=== PATIENT | male | born 1960 | race Caucasian/White ===

== ENCOUNTER 2016-11-21 07:36 | Day surgery (SDC) | payer BC ==
[2016-11-21] MEDS ORDERED: Lactated Ringers 1,000 ML IV SCH (08:30)
[2016-11-21] MEDS ORDERED: Sodium Chloride 0.9% 5 ML Syringe FLUSH PRN (08:30)
[2016-11-21] MEDS ORDERED: Midazolam 1 MG/ML 2 ML SDV ONE (08:31)
[2016-11-21] MEDS ORDERED: fentaNYL 100 MCG/2 ML SDV ONE (08:31)
[2016-11-21] MEDS ORDERED: Propofol 200 MG/20 ML SDV ONE ×2 (08:31→09:35)
[2016-11-21] MEDS ORDERED: EPINEPHrine 1:10,000 1 MG/10 ML Syringe ONE ×2 (09:07→10:31)
[2016-11-21] MEDS ORDERED: fentaNYL 100 MCG/2 ML SDV IV ONE (10:18)
[2016-11-21] MEDS ORDERED: Midazolam 1 MG/ML 2 ML SDV IV ONE (10:18)
[2016-11-21] MEDS ORDERED: Propofol 200 MG/20 ML SDV IV ONE (10:18)
--- NOTE | 2016-11-21 11:11 | PCM.OPNOTE ---
- General Post-Op/Procedure Note Date of Surgery/Procedure: 11/21/16 Operative Procedure(s): Colonoscopy with polypectomy x2 Pre Op Diagnosis: Rectal bleeding. Screening colonoscopy. Post-Op Diagnosis: 2 polyps identified one at 25 and one at 45 cm from the anal margin. Otherwise negative colonoscopy. Polypectomy performed by injection of one is to 10,000 epinephrine, loop electrocautery. Anesthesia Technique: MAC Primary Surgeon: Mercedez Prater Complications: None Condition: Good Free Text/Narrative:: INFORMED CONSENT: Patient is here today for elective colonoscopy. All aspects of this procedure have been discussed with the patient. All possible complications also, including possibility of perforation, infection, pain, bleeding and unknown complications. In the event of perforation patient may need to have abdominal exploration, colon resection, colostomy and even was discussed. Anesthetic complications were handled by anesthesia department. The patient understands fully well. Patient did not have any further questions for me at the end of my interview. The patient wishes for me to proceed. PREOPERATIVE DIAGNOSIS/INDICATIONS: [rectal bleeding and screening.] POSTOPERATIVE DIAGNOSIS: [2 polyps identified at 25 images and 40 cm from anal margin.] INSTRUMENT USED: Olympus videocolonoscope. ASA CLASSIFICATION: [2] ANESTHESIA: Continuous EKG, oximetry and intermittent blood pressure and respiratory monitoring were performed throughout the procedure. IV Versed and Fentanyl were administered. PROCEDURE PERFORMED: Colonoscopy POSITIONS OF PATIENT: Left lateral. RECTUM: Normal. SIGMOID COLON: a 25 cm a pedunculated polyp was identified. cc of one is to 10, 000 epinephrine was injected followed by loop and electrocautery and retrieval of the polyp.. DESCENDING COLON: small pedunculated polyp was identified. this was removed after injection with one is to 10,000 epinephrine, loop and the electrocautery and retrieval. SPLENIC FLEXURE: Normal. TRANSVERSE COLON: Normal. HEPATIC FLEXURE: Normal. ASCENDING COLON: Normal. CECUM: Normal. ILEOCECAL VALVE: Normal. BIOPSY: None. TOLERANCE: Excellent. COMPLICATIONS: None. Final diagnosis: 2 polyps identified at 25 cm and 40 cms from anal margin, otherwise negative colonoscopy.
[2016-11-21 13:29] VITALS: BP 131/94
== END 2016-11-21 12:20 | disposition home or self-care (01) ==
LOC: KA.SDS 07:36
PROVIDERS: ATTEND Family Medicine
DX: D12.4 Benign neoplasm of descending colon (principal); D12.5 Benign neoplasm of sigmoid colon
CPT/HCPCS: 45390; J0171; J2250; J2704; J3010; J7120

== ENCOUNTER 2017-05-27 10:28 | Emergency (ER) | payer BC ==
[2017-05-27 10:38] VITALS: BP 132/94
[2017-05-27] MEDS ORDERED: Sodium Chloride 0.9% 1,000 ML ONE (10:47)
[2017-05-27] MEDS ORDERED: Ondansetron 4 MG/2 ML SDV ONE (10:47)
[2017-05-27] MEDS ORDERED: Ondansetron 4 MG/2 ML SDV IVPUSH ONE (11:02)
[2017-05-27] MEDS ORDERED: Sodium Chloride 0.9% 1,000 ML IV ONE (11:02)
--- NOTE | 2017-05-27 11:04 | EDM.PDOC ---
ED HPI GENERAL MEDICAL PROBLEM - General Chief Complaint: Gastrointestinal Problem Stated Complaint: vomiting/diarrhea Time Seen by Provider: 05/27/17 11:00 Source of Information: Reports: Patient History Limitations: Reports: No Limitations - History of Present Illness INITIAL COMMENTS - FREE TEXT/NARRATIVE: 56 YO WM presents to ER with 2 day history of nausea, body aches, chills and diarrhea. Pt reports he began vomiting 2am today with 3-4 episodes of loose stool. Pt deies abdominal pain. Pt has been unable to tolerate PO fluid challenge at home. Pt also reports mild headache. Onset Date: 05/26/17 Duration: Day(s): (2) Location: Reports: Generalized Severity: Mild Improves with: Reports: None Worsens with: Reports: Eating Associated Symptoms: Reports: Fever/Chills, Loss of Appetite, Malaise, Nausea/ Vomiting. Denies: Chest Pain, Cough, cough w sputum, Rash, Shortness of Breath , Syncope Generalized Pain Score (Numeric/FACES): 7 - Related Data Allergies Allergy/AdvReac Type Severity Reaction Status Date / Time morphine Allergy Other Verified 05/27/17 10:38 Home Meds: Home Meds Allopurinol [Zyloprim] 100 mg PO DAILY 11/15/16 [History] Docusate Sodium [Colace] 100 mg PO DAILY 11/15/16 [History] Hydrocortisone [Procto-Med Hc] 30 gm TP QID 11/15/16 [History] Pravastatin Sodium [Pravastatin (Pravachol)] 80 mg PO DAILY 11/15/16 [History] Cyclobenzaprine HCl [Cyclobenzaprine HCl] 10 mg PO TID PRN 05/27/17 [History] Hydrocodone/Acetaminophen [Hydrocodon-Acetaminophn 10-325] 1 tab PO Q6H PRN [History] Ondansetron [Zofran ODT] 4 mg PO Q6H PRN #10 tab.dis 05/27/17 [Rx] Past Medical History HEENT History: Reports: Impaired Vision Cardiovascular History: Reports: High Cholesterol Musculoskeletal History: Reports: Gout - Past Surgical History Male Surgical History: Reports: Nephrectomy, Other (See Below) Other Male Surgeries/Procedures: right nephrectomy; 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 Social & Family History - Family History Cardiac: Reports: High Cholesterol - Tobacco Use Smoking Status *Q: Never Smoker - Caffeine Use Caffeine Use: Reports: Coffee, Soda - Recreational Drug Use Recreational Drug Use: Yes Drug Use in Last 12 Months: Yes Recreational Drug Type: Reports: Marijuana/Hashish Recreational Drug Use Frequency: Daily ED ROS GENERAL - Review of Systems Review Of Systems: See Below Constitutional: Reports: No Symptoms HEENT: Reports: No Symptoms Respiratory: Reports: No Symptoms Cardiovascular: Reports: No Symptoms Endocrine: Reports: No Symptoms GI/Abdominal: Reports: Diarrhea, Nausea, Vomiting. Denies: Abdominal Pain : Reports: No Symptoms Musculoskeletal: Reports: No Symptoms Skin: Reports: No Symptoms Neurological: Reports: No Symptoms Psychiatric: Reports: No Symptoms Hematologic/Lymphatic: Reports: No Symptoms Immunologic: Reports: No Symptoms ED EXAM, GI/ABD - Physical Exam Exam: See Below Exam Limited By: No Limitations General Appearance: Alert, WD/WN, No Apparent Distress Head: Atraumatic, Normocephalic Neck: Normal Inspection, Supple, Non-Tender, Full Range of Motion Respiratory/Chest: No Respiratory Distress, Lungs Clear, Normal Breath Sounds, No Accessory Muscle Use, Chest Non-Tender Cardiovascular: Normal Peripheral Pulses, Regular Rate, Rhythm, No Edema, No Gallop, No JVD, No Murmur, No Rub GI/Abdominal Exam: Normal Bowel Sounds, Soft, Non-Tender, No Organomegaly, No Distention, No Abnormal Bruit, No Mass, Pelvis Stable Back Exam: Normal Inspection, Full Range of Motion Extremities: Normal Inspection, Normal Range of Motion, Non-Tender, Normal Capillary Refill, No Pedal Edema Neurological: Alert, Oriented, CN II-XII Intact, Normal Cognition, Normal Gait, Normal Reflexes, No Motor/Sensory Deficits Psychiatric: Normal Affect, Normal Mood Skin Exam: Warm, Dry, Intact, Normal Color, No Rash Lymphatic: No Adenopathy Course - Vital Signs Last Recorded V/S: Last Vital Signs Temp 36.7 C 05/27/17 10:34 Pulse 75 05/27/17 10:34 Resp 16 05/27/17 10:34 BP 132/94 H 05/27/17 10:34 Pulse Ox 98 05/27/17 10:34 - Orders/Labs/Meds Labs: Laboratory Tests 05/27/17 05/27/17 Range/Units 10:45 10:45 WBC 10.7 H (5.0-10.0) 10^3/uL RBC 5.54 (4.50-6.00) 10^6/uL Hgb 17.1 H (13.0-17.0) g/dL Hct 52.2 H (40.0-52.0) % MCV 94.3 H (82.0-92.0) fL MCH 30.8 (27.0-31.0) pg MCHC 32.7 (32.0-36.0) g/dL RDW 12.1 (11.5-14.5) % Plt Count 243 (150-300) 10^3/uL MPV 8.2 (7.4-10.4) fL Neut % (Auto) 77.5 H (50.0-70.0) % Lymph % (Auto) 15.2 L (20.0-40.0) % Henderson % (Auto) 5.8 (2.0-8.0) % Eos % (Auto) 0.5 L (1.0-3.0) % Baso % (Auto) 1.0 (0.0-1.0) % Neut # (Auto) 8.3 H (2.5-7.0) 10^3/uL Lymph # (Auto) 1.6 (1.0-4.0) 10^3/uL Henderson # (Auto) 0.6 (0.1-0.8) 10^3/uL Eos # (Auto) 0.1 (0.1-0.3) 10^3/uL Baso # (Auto) 0.1 (0.0-0.1) 10^3/uL Sodium 144 (136-145) mmol/L Potassium 4.0 (3.3-5.3) mmol/L Chloride 106 (98-115) mmol/L Carbon Dioxide 25.4 (21.0-32.0) mmol/L BUN 11 (6-25) mg/dL Creatinine 0.80 (0.51-1.17) mg/dL Est Cr Clr Drug Dosing 104.33 mL/min Estimated GFR (MDRD) > 60 mL/min Glucose 118 H (70-110) mg/dL Calcium 9.2 (8.7-10.3) mg/dL Total Bilirubin 0.7 (0.2-1.0) mg/dL AST 21 (15-37) U/L ALT 42 (12-78) U/L Alkaline Phosphatase 67 (46-116) IU/L Total Protein 7.3 (6.4-8.2) g/dL Albumin 4.15 (3.00-4.80) g/dL Lipase 419 H (73-393) U/L Meds: Medications Discontinued Medications Generic Name Dose Route Start Last Admin Trade Name Jcarlosq PRN Reason Stop Dose Admin Sodium Chloride Confirm 05/27/17 10:47 05/27/17 10:58 Normal Saline Administered 05/27/17 10:48 Not Given Dose 1,000 mls @ as directed .ROUTE .STK-MED ONE Sodium Chloride 1,000 mls @ 999 mls/hr 05/27/17 11:02 05/27/17 10:48 Normal Saline IV 05/27/17 12:02 999 mls/hr .BOLUS ONE Administration Ketorolac Tromethamine 30 mg 05/27/17 11:27 05/27/17 11:31 Toradol IVPUSH 05/27/17 11:28 30 mg ONETIME ONE Administration Ondansetron HCl Confirm 05/27/17 10:47 05/27/17 10:58 Zofran Administered 05/27/17 10:48 Not Given Dose 4 mg .ROUTE .STK-MED ONE Ondansetron HCl 4 mg 05/27/17 11:02 05/27/17 10:49 Zofran IVPUSH 05/27/17 11:03 4 mg ONETIME ONE Administration - Re-Assessments/Exams Free Text/Narrative Re-Assessment/Exam: 05/27/17 12:09 Pt feeling much better after IVF and zofran. Departure - Departure Time of Disposition: 12:11 Disposition: Home, Self-Care 01 Condition: Good Clinical Impression: Gastroenteritis - Discharge Information Prescriptions: Ondansetron [Zofran ODT] 4 mg PO Q6H PRN #10 tab.dis PRN Reason: Vomiting Instructions: Nausea and Vomiting, Adult, [id number], Viral Gastroenteritis, Adult, [id number] Referrals: Estuardo Valera PA-C [Primary Care Provider] - Forms: ED Department Discharge
[2017-05-27 11:23] LABS: CHLORIDE,CL 106 mmol/L (98-115); SODIUM,NA 144 mmol/L (136-145)
[2017-05-27] MEDS ORDERED: Ketorolac 30 MG/ML SDV IVPUSH ONE (11:27)
[2017-05-27] MEDS ORDERED: Ondansetron 4 MG Tab.DIS PO ONE (12:35)
[2017-05-27] MEDS ORDERED: Ondansetron 4 MG Tab.DIS ONE (12:53)
== END 2017-05-27 12:35 | disposition home or self-care (01) ==
LOC: KA.ED 10:28
DX: K52.9 Noninfective gastroenteritis and colitis, unspecified (principal); E78.00 Pure hypercholesterolemia, unspecified; Z79.899 Other long term (current) drug therapy; Z88.5 Allergy status to narcotic agent
CPT/HCPCS: 36415; 80053; 83690; 85025; 96361; 96374; 96375; 99283; A9270; J1885; J2405; J7030

== ENCOUNTER 2021-12-06 09:41 | Day surgery (SDC) | payer BC ==
[2021-12-06] MEDS ORDERED: Sodium Chloride 0.9% 10 ML Syringe FLUSH PRN (09:45)
[2021-12-06] MEDS ORDERED: Propofol 200 MG/20 ML SDV ONE (09:59)
[2021-12-06] MEDS ORDERED: Midazolam 1 MG/ML 2 ML SDV ONE (09:59)
[2021-12-06] MEDS: Lactated Ringers 1,000 ML IV SCH (10:00)
[2021-12-06 11:56] VITALS: BP 134/85; PULSE 77
== END 2021-12-06 12:25 | disposition home or self-care (01) ==
LOC: KA.SDS 09:41
PROVIDERS: ATTEND Family Medicine
DX: Z12.11 Encounter for screening for malignant neoplasm of colon (principal); K63.5 Polyp of colon; K64.8 Other hemorrhoids; K57.30 Diverticulosis of large intestine without perforation or abscess without bleeding; E78.2 Mixed hyperlipidemia; R73.03 Prediabetes; M10.072 Idiopathic gout, left ankle and foot; M48.062 Spinal stenosis, lumbar region with neurogenic claudication; M51.26 Other intervertebral disc displacement, lumbar region; Z79.899 Other long term (current) drug therapy; Z79.52 Long term (current) use of systemic steroids; Z88.6 Allergy status to analgesic agent; Z98.890 Other specified postprocedural states; Z85.038 Personal history of other malignant neoplasm of large intestine; Z20.822 Contact with and (suspected) exposure to COVID-19
CPT/HCPCS: 00812; J2250; J2704; J7120